=== PATIENT | female | born 1990 | race Caucasian/White ===

== ENCOUNTER 2017-06-21 21:25 | Emergency (ER) | payer BC ==
[~2017-06-21] VITALS: Ht 175.3 cm; Wt 59.1 kg
[2017-06-21 21:30] VITALS: TEMP 97.8
[2017-06-21] MEDS ORDERED: NORMODYNE100 MG PO (22:35)
[2017-06-21] MEDS ORDERED: PROCARDIA XL 6060 MG PO (22:35)
[2017-06-21] MEDS ORDERED: MINASTRIN (22:36)
[2017-06-21] MEDS ORDERED: SOLIRIS10 MG/ML (22:40)
[2017-06-21 22:56] LABS: BASO % 0.4 % (0.0-2.0); EOS % 0.3 % (0-4.0); GRAN # 7.6 (1.4-6.5); GRAN % 84.3 % (42.2-75.2); HEMATOCRIT 43.1 % (37.0-47.0); HEMOGLOBIN 14.8 g/dl (12.5-16.0); LYMPH # 1.1 (1.2-3.4); LYMPH % 11.9 % (20.0-51.0); MEAN CELL VOLUME 82 fl (80.0-100.0); MEAN CORPUSCULAR HEMOGLOBIN 28 pg (27.0-31.0); MEAN CORPUSCULAR HGB CONC 34 g/dl (33.0-37.0); MEAN PLATELET VOLUME 9.5 fl (7.4-10.4); MONO # 0.3 (0.1-0.6); MONO % 2.9 % (1.7-9.3); PLATELET COUNT 246 K/mm3 (130-400); RED BLOOD COUNT 5.25 M/mm3 (4.10-5.30)
[2017-06-21 23:05] LABS: ALBUMIN 4.4 gm/dL (3.5-5.0); BILIRUBIN,TOTAL 0.5 mg/dL (0.0-1.0); CALCIUM 8.5 mg/dL (8.4-10.2); CREATININE, serum 0.54 mg/dL (0.52-1.25); POTASSIUM 3.7 mmol/L (3.4-5.0); TOTAL PROTEIN 7.3 gm/dL (6.4-8.2)
[2017-06-21 23:42] VITALS: BP 141/90
[2017-06-21 23:51] VITALS: PULSE 98
== END 2017-06-21 23:52 | disposition home or self-care (01) ==
LOC: COL.ER 21:25
PROVIDERS: Nurse Practitioner
DX: R51 Headache (principal); I10 Essential (primary) hypertension
CPT/HCPCS: J1200; J1885; J2765; J7030

== ENCOUNTER 2019-03-01 12:55 | Emergency (ER) | payer BC ==
[~2019-03-01] VITALS: Ht 172.7 cm; Wt 65.9 kg
[~2019-03-01 12:55] MED LIST: MINASTRIN; NORMODYNE100 MG PO; PROCARDIA XL 6060 MG PO; SOLIRIS10 MG/ML
[2019-03-01 13:00] VITALS: BP 122/72; TEMP 97.9
[2019-03-01] MEDS ORDERED: TOPROL XL 25MG25 MG PO (13:22)
[2019-03-01] MEDS ORDERED: PRENATAL TABLET PO (13:23)
[2019-03-01 13:48] LABS: COLLECTION METHOD CLEAN CATCH
[2019-03-01 14:02] LABS: MUCOUS Present /lpf; PH 7 (5-8); SQUAMOUS EPITHELIAL 0-2 /hpf; URINE APPEARANCE Cloudy; URINE BACTERIA None Seen /hpf; URINE BILIRUBIN Negative (NEGATIVE); URINE BLOOD Negative (NEGATIVE); URINE COLOR Yellow; URINE GLUCOSE Negative (NEGATIVE); URINE KETONE Negative (NEGATIVE); URINE LEUKOCYTE ESTERASE Negative (NEGATIVE); URINE NITRATE Negative (NEGATIVE); URINE PROTEIN(semi-quant) Negative (NEGATIVE); URINE RBC 0-2 /hpf; URINE UROBILINOGEN Negative (NEGATIVE)
[2019-03-01 15:27] VITALS: PULSE 54
== END 2019-03-01 15:27 | disposition home or self-care (01) ==
LOC: COL.ER 12:55
PROVIDERS: Physician Assistant
DX: O26.892 Other specified pregnancy related conditions, second trimester (principal); R10.2 Pelvic and perineal pain; I10 Essential (primary) hypertension; Z3A.18 18 weeks gestation of pregnancy